=== PATIENT | male | born 2000 | race Caucasian/White ===

== ENCOUNTER 2023-02-07 14:49 | Emergency (ER) | payer SELFPAY ==
[~2023-02-07] VITALS: Ht 167.6 cm; Wt 99.1 kg
[2023-02-07 15:15] VITALS: TEMP 98
[2023-02-07] MEDS ORDERED: PERCOCET 325 MG1 TA2 PO (18:46)
[2023-02-07] MEDS ORDERED: FLEXERIL 1010 MG/TAB PO (18:46)
[2023-02-07] MEDS ORDERED: MOTRIN 800800 MG/TAB PO (18:47)
[2023-02-07 18:56] VITALS: BP 123/93; PULSE 68
== END 2023-02-07 18:56 | disposition home or self-care (01) ==
LOC: COL.ER 14:49
DX: M54.16 Radiculopathy, lumbar region (principal); M54.12 Radiculopathy, cervical region; M54.6 Pain in thoracic spine; W17.89XA Other fall from one level to another, initial encounter; Y92.59 Other trade areas as the place of occurrence of the external cause; Y99.0 Civilian activity done for income or pay
CPT/HCPCS: J2270